=== PATIENT | female | born 1950 | race Caucasian/White ===

== ENCOUNTER 2021-06-13 13:20 | Inpatient (IN) ==
[2021-06-13] MEDS ORDERED: 0.9 % Sodium Chloride 500 ML IVC ONE (13:31)
[2021-06-13] MEDS ORDERED: 0.9 % Sodium Chloride 1,000 ML IVC SCH (13:45)
[2021-06-13 14:07] LABS: Basophils % 0.1 %; Eosinophils # 0.1 K/mcL (0.0-0.6); Eosinophils % 0.7 %; Hematocrit 35.4 % (35.3-44.9); Hemoglobin 11.7 g/dL (11.5-15.4); Immature Granulocytes % 0.9 % (0-4); Lymphocytes # 2.1 K/mcL (0.6-4.6); Lymphocytes % 17.4 %; Mean Corpuscular HGB Conc 33.1 g/dL (31.6-35.5); Mean Corpuscular Hemoglobin 36.8 pg (28.0-33.3); Mean Corpuscular Volume 111.3 fL (83.0-100.0); Mean Platelet Volume 10.8 fL (9.4-12.4); Monocytes # 0.5 K/mcL (0.0-1.3); Monocytes % 3.9 %; Neutrophils # 9.4 K/mcL (1.6-8.9); Platelet Count 143 K/mcL (140-400); Red Blood Count 3.18 M/mcL (3.82-4.97); Red Cell Distribution Width 17.2 % (11.5-14.5); White Blood Count 12.2 K/mcL (4.3-11.1)
[2021-06-13 14:14] LABS: INR 1.9; Prothrombin Time 21.2 Seconds (9.4-12.1)
[2021-06-13 14:16] LABS: Activated Partial Thrombo Time 32.5 Seconds (26.0-36.0)
[2021-06-13 14:25] LABS: Albumin 2.3 g/dL (3.5-5.7); Bilirubin,Direct 3.7 mg/dL (0.0-0.2); Bilirubin,Total 10.7 mg/dL (0.3-1.0); Globulin 2.4 g/dL (2.4-3.5); Potassium 3.6 mEq/L (3.5-5.1); Total Protein 4.7 g/dL (6.4-8.9)
[2021-06-13 14:30] LABS: Platelet Estimate Normal (Normal)
[2021-06-13 14:32] LABS: Macrocytosis Present (Not Present)
[2021-06-13] MEDS ORDERED: Naloxone 0.4 MG/ML INJ IVP PRN (15:37)
[2021-06-13] MEDS ORDERED: Ibuprofen 400 MG TABLET PO PRN (15:37)
[2021-06-13] MEDS ORDERED: Ondansetron 4 MG/2 ML VIAL IVP PRN (15:37)
[2021-06-13] MEDS: Ipratropium/Albuterol Neb 3 ML IH SCH ×2 (16:23→20:52)
[2021-06-13] MEDS: 0.9 % Sodium Chloride 1,000 ML IVC SCH (17:06)
[2021-06-13] MEDS: *HR* Heparin 5,000 UNIT/ML VIAL SQ SCH (17:38)
[2021-06-13] MEDS: Lactulose Oral Soln 20 GM/30 ML UDC PO SCH (20:37)
[2021-06-13] MEDS: Budesonide/Formoterol 160/4.5 1 PUFF INH IH SCH (20:51)
[2021-06-14] MEDS: 0.9 % Sodium Chloride 1,000 ML IVC SCH (03:10)
[2021-06-14] MEDS: Ipratropium/Albuterol Neb 3 ML IH SCH ×3 (04:25→08:05)
[2021-06-14] MEDS: *HR* Heparin 5,000 UNIT/ML VIAL SQ SCH ×2 (06:31→17:38)
[2021-06-14 07:53] LABS: Basophils % 0.2 %; Eosinophils # 0.1 K/mcL (0.0-0.6); Hematocrit 36.7 % (35.3-44.9); Hemoglobin 11.9 g/dL (11.5-15.4); Immature Granulocytes % 1.2 % (0-4); Lymphocytes # 2.3 K/mcL (0.6-4.6); Lymphocytes % 18.3 %; Mean Corpuscular HGB Conc 32.4 g/dL (31.6-35.5); Mean Corpuscular Hemoglobin 35.6 pg (28.0-33.3); Mean Corpuscular Volume 109.9 fL (83.0-100.0); Mean Platelet Volume 10.9 fL (9.4-12.4); Monocytes # 0.7 K/mcL (0.0-1.3); Monocytes % 5.9 %; Neutrophils # 9.3 K/mcL (1.6-8.9); Platelet Count 160 K/mcL (140-400); Red Blood Count 3.34 M/mcL (3.82-4.97); Red Cell Distribution Width 17.2 % (11.5-14.5); Segmented Neutrophils % 73.4 %; White Blood Count 12.6 K/mcL (4.3-11.1)
[2021-06-14 07:59] LABS: INR 1.7; Prothrombin Time 19.8 Seconds (9.4-12.1)
[2021-06-14] MEDS: Budesonide/Formoterol 160/4.5 1 PUFF INH IH SCH ×2 (08:05→22:43)
[2021-06-14 08:20] LABS: Albumin 2.3 g/dL (3.5-5.7); Albumin/Globulin Ratio 0.9 (1.1-2.2); Calcium 7.8 mg/dL (8.6-10.3); Globulin 2.6 g/dL (2.4-3.5); Magnesium 2.2 mg/dL (1.6-2.6); Potassium 3.7 mEq/L (3.5-5.1); Total Protein 4.9 g/dL (6.4-8.9)
[2021-06-14] MEDS ORDERED: Ipratropium/Albuterol Neb 3 ML IH PRN (08:58)
[2021-06-14] MEDS ORDERED: amLODIPine 5 MG TABLET PO SCH (09:00)
[2021-06-14] MEDS: Furosemide 40 MG TABLET PO SCH (09:22)
[2021-06-14] MEDS: Lactulose Oral Soln 20 GM/30 ML UDC PO SCH ×2 (09:22→21:22)
[2021-06-15 05:58] LABS: Basophils % 0.2 %; Eosinophils # 0.1 K/mcL (0.0-0.6); Eosinophils % 1.2 %; Hematocrit 35.1 % (35.3-44.9); Hemoglobin 11.5 g/dL (11.5-15.4); Immature Granulocytes % 0.8 % (0-4); Lymphocytes # 1.7 K/mcL (0.6-4.6); Lymphocytes % 18.7 %; Mean Corpuscular HGB Conc 32.8 g/dL (31.6-35.5); Mean Corpuscular Hemoglobin 36.3 pg (28.0-33.3); Mean Corpuscular Volume 110.7 fL (83.0-100.0); Mean Platelet Volume 10.5 fL (9.4-12.4); Monocytes # 0.4 K/mcL (0.0-1.3); Monocytes % 4.3 %; Platelet Count 145 K/mcL (140-400); Red Blood Count 3.17 M/mcL (3.82-4.97); Red Cell Distribution Width 17.3 % (11.5-14.5); Segmented Neutrophils % 74.8 %; White Blood Count 9.3 K/mcL (4.3-11.1)
[2021-06-15 06:26] LABS: Anisocytosis 1+ (Not Present); Macrocytosis Present (Not Present)
[2021-06-15] MEDS: *HR* Heparin 5,000 UNIT/ML VIAL SQ SCH ×2 (06:49→17:24)
[2021-06-15 06:57] LABS: Albumin 2.2 g/dL (3.5-5.7); Albumin/Globulin Ratio 0.9 (1.1-2.2); Bilirubin,Total 7.8 mg/dL (0.3-1.0); Calcium 7.5 mg/dL (8.6-10.3); Globulin 2.4 g/dL (2.4-3.5); Potassium 3.9 mEq/L (3.5-5.1); Total Protein 4.6 g/dL (6.4-8.9)
[2021-06-15] MEDS: Lactulose Oral Soln 20 GM/30 ML UDC PO SCH ×2 (09:13→20:18)
[2021-06-15] MEDS: Furosemide 40 MG TABLET PO SCH (09:13)
[2021-06-15] MEDS: Budesonide/Formoterol 160/4.5 1 PUFF INH IH SCH ×2 (09:46→21:35)
[2021-06-15 10:04] LABS: INR 1.6; Prothrombin Time 17.8 Seconds (9.4-12.1)
[2021-06-15] MEDS ORDERED: Albumin 25% 25gram/100mL 12.5 GM/50 ML IV.SOLN IVPB ONE (14:38)
[2021-06-15 14:58] LABS: Hepatitis B Surface Antigen Nonreactive (Nonreactive)
[2021-06-15 15:26] LABS: Hepatitis C Virus Antibody Nonreactive (Nonreactive)
[2021-06-15 15:27] LABS: Hepatitis B Core IgM Nonreactive (Nonreactive)
[2021-06-15 15:28] LABS: Hepatitis A Antibody IgM Nonreactive (Nonreactive)
[2021-06-15 16:32] LABS: RBC,Peritoneal Fluid < 2000 RBC/mcL
[2021-06-15 16:33] LABS: Appearance of Peritoneal Fl CLEAR (Clear)
[2021-06-15 17:46] LABS: Basophils,Peritoneal Fluid 0 %; Eosinophils,Peritoneal Fluid 0 %
[2021-06-16] MEDS: *HR* Heparin 5,000 UNIT/ML VIAL SQ SCH ×2 (05:43→15:45)
[2021-06-16 07:32] LABS: Basophils % 0.2 %; Eosinophils # 0.1 K/mcL (0.0-0.6); Eosinophils % 0.7 %; Hematocrit 32.5 % (35.3-44.9); Hemoglobin 10.7 g/dL (11.5-15.4); Immature Granulocytes % 0.9 % (0-4); Lymphocytes # 1.8 K/mcL (0.6-4.6); Lymphocytes % 18.8 %; Mean Corpuscular HGB Conc 32.9 g/dL (31.6-35.5); Mean Corpuscular Hemoglobin 36.6 pg (28.0-33.3); Mean Corpuscular Volume 111.3 fL (83.0-100.0); Mean Platelet Volume 11.1 fL (9.4-12.4); Monocytes # 0.5 K/mcL (0.0-1.3); Monocytes % 4.9 %; Neutrophils # 7.2 K/mcL (1.6-8.9); Platelet Count 125 K/mcL (140-400); Red Blood Count 2.92 M/mcL (3.82-4.97); Red Cell Distribution Width 17.6 % (11.5-14.5); Segmented Neutrophils % 74.5 %; White Blood Count 9.7 K/mcL (4.3-11.1)
[2021-06-16 07:52] LABS: INR 1.7; Prothrombin Time 19.2 Seconds (9.4-12.1)
[2021-06-16 08:06] LABS: Macrocytosis Present (Not Present)
[2021-06-16] MEDS: Lactulose Oral Soln 20 GM/30 ML UDC PO SCH ×2 (09:12→20:08)
[2021-06-16] MEDS: Furosemide 40 MG TABLET PO SCH (09:13)
[2021-06-16] MEDS: Budesonide/Formoterol 160/4.5 1 PUFF INH IH SCH ×2 (09:54→22:07)
[2021-06-16 12:08] LABS: Albumin 2.1 g/dL (3.5-5.7); Bilirubin,Total 6.1 mg/dL (0.3-1.0); Calcium 7.4 mg/dL (8.6-10.3); Globulin 2.1 g/dL (2.4-3.5); Potassium 3.9 mEq/L (3.5-5.1); Total Protein 4.2 g/dL (6.4-8.9)
[2021-06-16] MEDS: cephALEXin 500 MG CAPSULE PO SCH ×2 (15:45→20:08)
[2021-06-17] MEDS: *HR* Heparin 5,000 UNIT/ML VIAL SQ SCH (06:02)
[2021-06-17 07:43] VITALS: BP 89/54; PULSE 65; RESP 18; TEMP 98
[2021-06-17 07:59] LABS: Basophils % 0.2 %; Eosinophils # 0.1 K/mcL (0.0-0.6); Eosinophils % 1.2 %; Hematocrit 32.1 % (35.3-44.9); Hemoglobin 10.5 g/dL (11.5-15.4); Immature Granulocytes % 0.7 % (0-4); Lymphocytes # 1.7 K/mcL (0.6-4.6); Lymphocytes % 19.9 %; Mean Corpuscular HGB Conc 32.7 g/dL (31.6-35.5); Mean Corpuscular Hemoglobin 36.3 pg (28.0-33.3); Mean Corpuscular Volume 111.1 fL (83.0-100.0); Mean Platelet Volume 11.2 fL (9.4-12.4); Monocytes # 0.6 K/mcL (0.0-1.3); Monocytes % 6.9 %; Neutrophils # 6.2 K/mcL (1.6-8.9); Platelet Count 130 K/mcL (140-400); Red Blood Count 2.89 M/mcL (3.82-4.97); Red Cell Distribution Width 17.8 % (11.5-14.5); Segmented Neutrophils % 71.1 %; White Blood Count 8.7 K/mcL (4.3-11.1)
[2021-06-17] MEDS: cephALEXin 500 MG CAPSULE PO SCH (08:22)
[2021-06-17] MEDS: Lactulose Oral Soln 20 GM/30 ML UDC PO SCH (08:22)
[2021-06-17] MEDS: Furosemide 40 MG TABLET PO SCH (08:22)
[2021-06-17 08:30] LABS: Albumin 1.9 g/dL (3.5-5.7); Albumin/Globulin Ratio 0.9 (1.1-2.2); Bilirubin,Total 6.1 mg/dL (0.3-1.0); Calcium 7.3 mg/dL (8.6-10.3); Globulin 2.2 g/dL (2.4-3.5); Total Protein 4.1 g/dL (6.4-8.9)
[2021-06-17 08:34] LABS: Macrocytosis Present (Not Present)
[2021-06-17] MEDS: Budesonide/Formoterol 160/4.5 1 PUFF INH IH SCH (09:29)
[2021-06-17 09:31] VITALS: O2SAT 91
== END 2021-06-17 13:15 | disposition home or self-care (01) | DRG 603 ==
LOC: INPPIK 13:20 → EMEROOPIK 13:20 → INPPIK 16:01
PROVIDERS: ADMIT Nurse Practitioner Family; ATTEND Nurse Practitioner Family

== ENCOUNTER 2021-07-01 15:48 | Inpatient (IN) ==
[2021-07-01] MEDS: Ipratropium/Albuterol Neb 3 ML IH SCH (21:35)
[2021-07-01] MEDS: Budesonide/Formoterol 160/4.5 1 PUFF INH IH SCH (21:35)
[2021-07-01] MEDS: cephALEXin 500 MG CAPSULE PO SCH (21:47)
[2021-07-01] MEDS: [UNRECOGNIZED DRUG - OTHER] IH SCH (21:47)
[2021-07-01] MEDS: Lactulose Oral Soln 20 GM/30 ML UDC PO SCH (21:48)
[2021-07-02] MEDS: NEBULIZER ACCESSORIES IH SCH ×4 (01:20→16:37)
[2021-07-02] MEDS: [UNRECOGNIZED DRUG - OTHER] IH SCH ×4 (01:20→16:37)
[2021-07-02] MEDS: Ipratropium/Albuterol Neb 3 ML IH SCH ×4 (03:16→21:21)
[2021-07-02] MEDS ORDERED: *HR* Enoxaparin 30 MG/0.3 ML SYRINGE SQ SCH (07:00)
[2021-07-02 07:13] LABS: Basophils # 0.1 K/mcL (0.0-0.2); Basophils % 0.4 %; Eosinophils # 0.1 K/mcL (0.0-0.6); Eosinophils % 0.8 %; Hematocrit 28.3 % (35.3-44.9); Hemoglobin 9.4 g/dL (11.5-15.4); Immature Granulocytes % 0.4 % (0-4); Lymphocytes # 2.7 K/mcL (0.6-4.6); Mean Corpuscular HGB Conc 33.2 g/dL (31.6-35.5); Mean Corpuscular Hemoglobin 38.2 pg (28.0-33.3); Mean Platelet Volume 10.5 fL (9.4-12.4); Monocytes # 0.8 K/mcL (0.0-1.3); Monocytes % 6.6 %; Neutrophils # 8.1 K/mcL (1.6-8.9); Platelet Count 109 K/mcL (140-400); Red Blood Count 2.46 M/mcL (3.82-4.97); Red Cell Distribution Width 19.9 % (11.5-14.5); Segmented Neutrophils % 68.8 %; White Blood Count 11.8 K/mcL (4.3-11.1)
[2021-07-02 07:34] LABS: BUN/Creatinine Ratio 30 (6-26); Blood Urea Nitrogen 32 mg/dL (8-23); Calcium 7.9 mg/dL (8.6-10.3); Carbon Dioxide 25 mEq/L (23-29); Chloride 99 mEq/L (98-107); Glucose 120 mg/dL (70-105); Osmolality,Calculated 286 (280-300); Potassium 3.8 mEq/L (3.5-5.1); Sodium 134 mEq/L (136-145); eGFR For African Americans > 60 (> 60); eGFR For Non-African Americans 50 (> 60)
[2021-07-02] MEDS: cephALEXin 500 MG CAPSULE PO SCH ×3 (09:16→20:39)
[2021-07-02] MEDS: Lactulose Oral Soln 20 GM/30 ML UDC PO SCH ×2 (09:17→20:39)
[2021-07-02] MEDS: Furosemide 40 MG TABLET PO SCH (09:25)
[2021-07-02] MEDS: amLODIPine 5 MG TABLET PO SCH (09:27)
[2021-07-02 09:34] LABS: Anisocytosis 1+ (Not Present); Macrocytosis Present (Not Present); Platelet Estimate Decreased (Normal)
[2021-07-02] MEDS: Budesonide/Formoterol 160/4.5 1 PUFF INH IH SCH ×2 (10:39→21:21)
[2021-07-02 15:16] LABS: Albumin 2.7 g/dL (3.5-5.7); Albumin/Globulin Ratio 1.5 (1.1-2.2); Bilirubin,Direct 1.8 mg/dL (0.0-0.2); Bilirubin,Indirect 5.4 mg/dL (0.0-1.0); Bilirubin,Total 7.2 mg/dL (0.3-1.0); Globulin 1.8 g/dL (2.4-3.5); Total Protein 4.5 g/dL (6.4-8.9)
[2021-07-03] MEDS: Ipratropium/Albuterol Neb 3 ML IH SCH ×4 (03:16→22:10)
[2021-07-03] MEDS: *HR* Enoxaparin 40 MG/0.4 ML SYRINGE SQ SCH (05:18)
[2021-07-03 07:00] LABS: Basophils # 0.1 K/mcL (0.0-0.2); Basophils % 0.5 %; Eosinophils # 0.1 K/mcL (0.0-0.6); Eosinophils % 0.7 %; Hematocrit 31.9 % (35.3-44.9); Hemoglobin 9.7 g/dL (11.5-15.4); Immature Granulocytes % 0.4 % (0-4); Lymphocytes # 2.5 K/mcL (0.6-4.6); Lymphocytes % 26.6 %; Mean Corpuscular HGB Conc 30.4 g/dL (31.6-35.5); Mean Corpuscular Hemoglobin 38.3 pg (28.0-33.3); Mean Corpuscular Volume 126.1 fL (83.0-100.0); Mean Platelet Volume 10.8 fL (9.4-12.4); Monocytes # 0.6 K/mcL (0.0-1.3); Monocytes % 6.5 %; Neutrophils # 6.2 K/mcL (1.6-8.9); Platelet Count 100 K/mcL (140-400); Red Blood Count 2.53 M/mcL (3.82-4.97); Red Cell Distribution Width 20.5 % (11.5-14.5); Segmented Neutrophils % 65.3 %; White Blood Count 9.5 K/mcL (4.3-11.1)
[2021-07-03 08:08] LABS: Anisocytosis 1+ (Not Present); Macrocytosis Present (Not Present); Platelet Estimate Decreased (Normal); Spherocytes 1+ (Not Present)
[2021-07-03 09:11] LABS: Alanine Aminotransferase 36 Units/L (7-52); Albumin 2.6 g/dL (3.5-5.7); Albumin/Globulin Ratio 1.3 (1.1-2.2); Alkaline Phosphatase 64 Units/L (34-104); Aspartate Amino Transferase 58 Units/L (13-39); BUN/Creatinine Ratio 37 (6-26); Bilirubin,Total 7.4 mg/dL (0.3-1.0); Blood Urea Nitrogen 36 mg/dL (8-23); Carbon Dioxide 23 mEq/L (23-29); Chloride 100 mEq/L (98-107); Glucose 86 mg/dL (70-105); Osmolality,Calculated 288 (280-300); Potassium 4.1 mEq/L (3.5-5.1); Sodium 135 mEq/L (136-145); Total Protein 4.6 g/dL (6.4-8.9); eGFR For African Americans > 60 (> 60); eGFR For Non-African Americans 56 (> 60)
[2021-07-03] MEDS: Lactulose Oral Soln 20 GM/30 ML UDC PO SCH ×2 (09:25→19:35)
[2021-07-03] MEDS: cephALEXin 500 MG CAPSULE PO SCH ×3 (09:25→19:33)
[2021-07-03] MEDS: Budesonide/Formoterol 160/4.5 1 PUFF INH IH SCH ×2 (10:59→22:11)
[2021-07-03] MEDS ORDERED: Albumin 25% 25gram/100mL 25 GM/100 ML IV.SOLN IVPB ONE (14:36)
[2021-07-04] MEDS: Ipratropium/Albuterol Neb 3 ML IH SCH (03:03)
[2021-07-04] MEDS: *HR* Enoxaparin 40 MG/0.4 ML SYRINGE SQ SCH (05:32)
[2021-07-04] MEDS: Furosemide 40 MG TABLET PO SCH (09:02)
[2021-07-04] MEDS: Lactulose Oral Soln 20 GM/30 ML UDC PO SCH ×2 (09:02→20:44)
[2021-07-04] MEDS: amLODIPine 5 MG TABLET PO SCH (09:03)
[2021-07-04] MEDS ORDERED: Ipratropium/Albuterol Neb 3 ML IH PRN (10:00)
[2021-07-04] MEDS: Budesonide/Formoterol 160/4.5 1 PUFF INH IH SCH ×2 (10:10→21:37)
[2021-07-04] MEDS: NEBULIZER ACCESSORIES IH SCH ×3 (16:57→17:00)
[2021-07-04] MEDS: [UNRECOGNIZED DRUG - OTHER] IH SCH ×3 (16:58→17:00)
[2021-07-05] MEDS: NEBULIZER ACCESSORIES IH SCH ×3 (04:06→16:56)
[2021-07-05] MEDS: [UNRECOGNIZED DRUG - OTHER] IH SCH ×3 (04:06→16:56)
[2021-07-05] MEDS: Furosemide 40 MG TABLET PO SCH (08:52)
[2021-07-05] MEDS: Lactulose Oral Soln 20 GM/30 ML UDC PO SCH ×2 (08:53→21:03)
[2021-07-05] MEDS: amLODIPine 5 MG TABLET PO SCH (08:53)
[2021-07-05] MEDS: *HR* Enoxaparin 40 MG/0.4 ML SYRINGE SQ SCH (09:08)
[2021-07-05 09:23] LABS: Basophils % 0.5 %; Eosinophils % 0.5 %; Hematocrit 29.4 % (35.3-44.9); Hemoglobin 9.3 g/dL (11.5-15.4); Immature Granulocytes % 0.3 % (0-4); Lymphocytes # 2.9 K/mcL (0.6-4.6); Mean Corpuscular HGB Conc 31.6 g/dL (31.6-35.5); Mean Corpuscular Hemoglobin 38.4 pg (28.0-33.3); Mean Corpuscular Volume 121.5 fL (83.0-100.0); Mean Platelet Volume 10.6 fL (9.4-12.4); Monocytes # 0.7 K/mcL (0.0-1.3); Neutrophils # 3.7 K/mcL (1.6-8.9); Red Blood Count 2.42 M/mcL (3.82-4.97); Red Cell Distribution Width 20.4 % (11.5-14.5); Segmented Neutrophils % 50.7 %; White Blood Count 7.3 K/mcL (4.3-11.1)
[2021-07-05 09:29] LABS: Platelet Count 72 K/mcL (140-400)
[2021-07-05] MEDS: Budesonide/Formoterol 160/4.5 1 PUFF INH IH SCH ×2 (10:22→21:11)
[2021-07-05 10:25] LABS: Alanine Aminotransferase 41 Units/L (7-52); Albumin 2.6 g/dL (3.5-5.7); Albumin/Globulin Ratio 1.3 (1.1-2.2); Alkaline Phosphatase 65 Units/L (34-104); Aspartate Amino Transferase 73 Units/L (13-39); BUN/Creatinine Ratio 33 (6-26); Bilirubin,Total 7.1 mg/dL (0.3-1.0); Blood Urea Nitrogen 28 mg/dL (8-23); Calcium 7.8 mg/dL (8.6-10.3); Carbon Dioxide 23 mEq/L (23-29); Chloride 99 mEq/L (98-107); Glucose 88 mg/dL (70-105); Osmolality,Calculated 279 (280-300); Potassium 4.5 mEq/L (3.5-5.1); Sodium 132 mEq/L (136-145); Total Protein 4.6 g/dL (6.4-8.9); eGFR For African Americans > 60 (> 60); eGFR For Non-African Americans > 60 (> 60)
[2021-07-05 10:28] LABS: Anisocytosis 2+ (Not Present); Macrocytosis Present (Not Present); Platelet Estimate Decreased (Normal)
[2021-07-05] MEDS: Ondansetron ODT 4 MG TAB.RAPDIS PO PRN (21:06)
[2021-07-06] MEDS: NEBULIZER ACCESSORIES IH SCH ×3 (02:50→14:11)
[2021-07-06] MEDS: [UNRECOGNIZED DRUG - OTHER] IH SCH ×3 (02:50→14:11)
[2021-07-06] MEDS: *HR* Enoxaparin 40 MG/0.4 ML SYRINGE SQ SCH (06:32)
[2021-07-06] MEDS: amLODIPine 5 MG TABLET PO SCH (08:00)
[2021-07-06] MEDS: Lactulose Oral Soln 20 GM/30 ML UDC PO SCH ×2 (08:16→20:28)
[2021-07-06] MEDS: Furosemide 40 MG TABLET PO SCH (08:17)
[2021-07-06] MEDS: Budesonide/Formoterol 160/4.5 1 PUFF INH IH SCH ×2 (10:06→22:09)
[2021-07-07] MEDS: *HR* Enoxaparin 40 MG/0.4 ML SYRINGE SQ SCH (05:47)
[2021-07-07] MEDS: NEBULIZER ACCESSORIES IH SCH ×4 (08:53→17:55)
[2021-07-07] MEDS: [UNRECOGNIZED DRUG - OTHER] IH SCH ×4 (08:53→17:55)
[2021-07-07] MEDS: Lactulose Oral Soln 20 GM/30 ML UDC PO SCH ×2 (09:04→22:00)
[2021-07-07] MEDS: Furosemide 40 MG TABLET PO SCH (09:04)
[2021-07-07] MEDS: Budesonide/Formoterol 160/4.5 1 PUFF INH IH SCH ×2 (09:36→20:06)
[2021-07-07] MEDS: Albumin 25% 25gram/100mL 25 GM/100 ML IV.SOLN IVPB ONE (16:25)
[2021-07-08] MEDS: NEBULIZER ACCESSORIES IH SCH ×4 (00:43→18:16)
[2021-07-08] MEDS: [UNRECOGNIZED DRUG - OTHER] IH SCH ×4 (00:44→18:16)
[2021-07-08] MEDS: *HR* Enoxaparin 40 MG/0.4 ML SYRINGE SQ SCH (06:10)
[2021-07-08] MEDS: Lactulose Oral Soln 20 GM/30 ML UDC PO SCH ×2 (08:44→21:12)
[2021-07-08] MEDS: Furosemide 40 MG TABLET PO SCH (08:45)
[2021-07-08] MEDS: Budesonide/Formoterol 160/4.5 1 PUFF INH IH SCH ×2 (09:12→20:12)
[2021-07-08 09:39] LABS: Basophils % 0.4 %; Eosinophils % 0.3 %; Hemoglobin 8.7 g/dL (11.5-15.4); Immature Granulocytes % 0.4 % (0-4); Lymphocytes # 3.8 K/mcL (0.6-4.6); Lymphocytes % 38.6 %; Mean Corpuscular HGB Conc 32.2 g/dL (31.6-35.5); Mean Corpuscular Hemoglobin 38.7 pg (28.0-33.3); Mean Platelet Volume 10.5 fL (9.4-12.4); Monocytes # 0.7 K/mcL (0.0-1.3); Monocytes % 7.1 %; Neutrophils # 5.3 K/mcL (1.6-8.9); Platelet Count 117 K/mcL (140-400); Red Blood Count 2.25 M/mcL (3.82-4.97); Red Cell Distribution Width 20.1 % (11.5-14.5); Segmented Neutrophils % 53.2 %; White Blood Count 9.9 K/mcL (4.3-11.1)
[2021-07-08 10:07] LABS: BUN/Creatinine Ratio 30 (6-26); Blood Urea Nitrogen 28 mg/dL (8-23); Calcium 7.8 mg/dL (8.6-10.3); Carbon Dioxide 24 mEq/L (23-29); Chloride 100 mEq/L (98-107); Glucose 109 mg/dL (70-105); Osmolality,Calculated 284 (280-300); Potassium 4.1 mEq/L (3.5-5.1); Sodium 134 mEq/L (136-145); eGFR For African Americans > 60 (> 60); eGFR For Non-African Americans > 60 (> 60)
[2021-07-08] MEDS ORDERED: Albumin 25% 25gram/100mL 25 GM/100 ML IV.SOLN IVPB ONE (10:42)
[2021-07-08] MEDS: Albumin 25% 25gram/100mL 25 GM/100 ML IV.SOLN IVPB ONE (11:00)
[2021-07-08 11:05] LABS: Anisocytosis 1+ (Not Present); Macrocytosis Present (Not Present); Platelet Estimate Slight Decrease (Normal)
[2021-07-09] MEDS: NEBULIZER ACCESSORIES IH SCH ×4 (06:08→16:25)
[2021-07-09] MEDS: [UNRECOGNIZED DRUG - OTHER] IH SCH ×4 (06:08→16:25)
[2021-07-09] MEDS: *HR* Enoxaparin 40 MG/0.4 ML SYRINGE SQ SCH (06:09)
[2021-07-09] MEDS: Furosemide 40 MG TABLET PO SCH (08:29)
[2021-07-09] MEDS: Lactulose Oral Soln 20 GM/30 ML UDC PO SCH ×2 (08:30→20:14)
[2021-07-09] MEDS: Budesonide/Formoterol 160/4.5 1 PUFF INH IH SCH ×2 (09:23→20:24)
[2021-07-10] MEDS: NEBULIZER ACCESSORIES IH SCH ×4 (01:19→17:03)
[2021-07-10] MEDS: [UNRECOGNIZED DRUG - OTHER] IH SCH ×4 (01:19→17:03)
[2021-07-10] MEDS: *HR* Enoxaparin 40 MG/0.4 ML SYRINGE SQ SCH (05:17)
[2021-07-10] MEDS: Budesonide/Formoterol 160/4.5 1 PUFF INH IH SCH ×2 (09:09→21:55)
[2021-07-10] MEDS: Lactulose Oral Soln 20 GM/30 ML UDC PO SCH ×2 (14:20→20:19)
[2021-07-10] MEDS: Furosemide 40 MG TABLET PO SCH (14:21)
[2021-07-11] MEDS: *HR* Enoxaparin 40 MG/0.4 ML SYRINGE SQ SCH (05:30)
[2021-07-11] MEDS: NEBULIZER ACCESSORIES IH SCH ×4 (05:33→22:52)
[2021-07-11] MEDS: [UNRECOGNIZED DRUG - OTHER] IH SCH ×4 (05:33→22:52)
[2021-07-11] MEDS: Furosemide 40 MG TABLET PO SCH (10:01)
[2021-07-11] MEDS: Lactulose Oral Soln 20 GM/30 ML UDC PO SCH ×2 (10:02→21:41)
[2021-07-11] MEDS: Budesonide/Formoterol 160/4.5 1 PUFF INH IH SCH ×2 (11:28→20:43)
[2021-07-11 22:50] LABS: Basophils % 0.4 %; Eosinophils % 0.4 %; Hematocrit 27.8 % (35.3-44.9); Hemoglobin 9.2 g/dL (11.5-15.4); Immature Granulocytes % 0.4 % (0-4); Lymphocytes # 5.2 K/mcL (0.6-4.6); Lymphocytes % 46.1 %; Mean Corpuscular HGB Conc 33.1 g/dL (31.6-35.5); Mean Corpuscular Hemoglobin 37.9 pg (28.0-33.3); Mean Corpuscular Volume 114.4 fL (83.0-100.0); Mean Platelet Volume 10.3 fL (9.4-12.4); Monocytes # 0.8 K/mcL (0.0-1.3); Neutrophils # 5.1 K/mcL (1.6-8.9); Platelet Count 132 K/mcL (140-400); Red Blood Count 2.43 M/mcL (3.82-4.97); Red Cell Distribution Width 19.1 % (11.5-14.5); Segmented Neutrophils % 45.7 %; White Blood Count 11.2 K/mcL (4.3-11.1)
[2021-07-11 23:00] LABS: INR 2.5
[2021-07-11 23:10] LABS: Alanine Aminotransferase 49 Units/L (7-52); Albumin 2.6 g/dL (3.5-5.7); Albumin/Globulin Ratio 1.1 (1.1-2.2); Alkaline Phosphatase 70 Units/L (34-104); Aspartate Amino Transferase 91 Units/L (13-39); BUN/Creatinine Ratio 32 (6-26); Bilirubin,Total 6.8 mg/dL (0.3-1.0); Blood Urea Nitrogen 32 mg/dL (8-23); Calcium 8.1 mg/dL (8.6-10.3); Carbon Dioxide 23 mEq/L (23-29); Chloride 100 mEq/L (98-107); Globulin 2.3 g/dL (2.4-3.5); Glucose 116 mg/dL (70-105); Osmolality,Calculated 286 (280-300); Potassium 4.5 mEq/L (3.5-5.1); Sodium 134 mEq/L (136-145); Total Protein 4.9 g/dL (6.4-8.9); eGFR For African Americans > 60 (> 60); eGFR For Non-African Americans 55 (> 60)
[2021-07-11 23:19] LABS: Anisocytosis 2+ (Not Present); Macrocytosis Present (Not Present)
[2021-07-11 23:21] LABS: Platelet Estimate Decreased (Normal)
[2021-07-12 00:14] LABS: Bilirubin,Urine Negative (Negative); Blood,Urine Large (Negative); Clarity,Urine Cloudy (Clear); Color,Urine Amber (Yellow); Glucose,Urine (UA) Normal (Normal); Ketones,Urine Trace mg/dL (Negative); Leukocyte Esterase,Urine Moderate (Negative); Nitrite,Urine Negative (Negative); PH,Urine 5.5 pH Units (5.0-8.0); Protein,Urine 100 mg/dL (Neg-Trace); Specific Gravity,Urine 1.025 (1.010-1.025)
[2021-07-12] MEDS ORDERED: Lactulose Oral Soln 20 GM/30 ML UDC PO ONE ×2 (00:14→02:45)
[2021-07-12 00:22] LABS: Bacteria,Urine Many per hpf (None-Few); RBC,Urine 30-50 per hpf (0-3); Squamous Epithelial Cell,Urine Moderate per hpf (None-Few); WBC,Urine TNTC per hpf (0-3)
[2021-07-12] MEDS: NEBULIZER ACCESSORIES IH SCH ×4 (04:17→20:35)
[2021-07-12] MEDS: [UNRECOGNIZED DRUG - OTHER] IH SCH ×4 (04:17→20:35)
[2021-07-12] MEDS ORDERED: Bisacodyl 10 MG RECTAL SUPPOSITORY RC PRN (04:35)
[2021-07-12] MEDS: cefTRIAXone 1,000 MG in Water for inj. (sterile) 10 ML IVP SCH (05:12)
[2021-07-12] MEDS: *HR* Enoxaparin 40 MG/0.4 ML SYRINGE SQ SCH (05:13)
[2021-07-12] MEDS: Lactulose Oral Soln 20 GM/30 ML UDC PO SCH ×2 (09:25→20:35)
[2021-07-12] MEDS: Furosemide 40 MG TABLET PO SCH (09:27)
[2021-07-12] MEDS: Budesonide/Formoterol 160/4.5 1 PUFF INH IH SCH ×2 (10:47→20:22)
[2021-07-13] MEDS: NEBULIZER ACCESSORIES IH SCH ×3 (05:14→17:05)
[2021-07-13] MEDS: [UNRECOGNIZED DRUG - OTHER] IH SCH ×3 (05:14→17:05)
[2021-07-13] MEDS: *HR* Enoxaparin 40 MG/0.4 ML SYRINGE SQ SCH (06:02)
[2021-07-13 07:45] LABS: Basophils % 0.3 %; Eosinophils # 0.1 K/mcL (0.0-0.6); Eosinophils % 0.9 %; Hematocrit 26.5 % (35.3-44.9); Hemoglobin 8.7 g/dL (11.5-15.4); Immature Granulocytes % 0.4 % (0-4); Lymphocytes # 4.2 K/mcL (0.6-4.6); Lymphocytes % 42.9 %; Mean Corpuscular HGB Conc 32.8 g/dL (31.6-35.5); Mean Corpuscular Hemoglobin 37.8 pg (28.0-33.3); Mean Corpuscular Volume 115.2 fL (83.0-100.0); Mean Platelet Volume 10.2 fL (9.4-12.4); Monocytes # 0.8 K/mcL (0.0-1.3); Monocytes % 8.4 %; Neutrophils # 4.6 K/mcL (1.6-8.9); Platelet Count 127 K/mcL (140-400); Red Cell Distribution Width 18.9 % (11.5-14.5); Segmented Neutrophils % 47.1 %; White Blood Count 9.8 K/mcL (4.3-11.1)
[2021-07-13 07:58] VITALS: BP 91/60; PULSE 77; TEMP 97.5
[2021-07-13 08:01] LABS: Albumin 2.4 g/dL (3.5-5.7); Bilirubin,Total 5.7 mg/dL (0.3-1.0); Calcium 7.9 mg/dL (8.6-10.3); Globulin 2.5 g/dL (2.4-3.5); Potassium 4.5 mEq/L (3.5-5.1); Total Protein 4.9 g/dL (6.4-8.9)
[2021-07-13 08:33] LABS: Anisocytosis 2+ (Not Present); Platelet Estimate Decreased (Normal)
[2021-07-13 08:35] LABS: Macrocytosis Present (Not Present)
[2021-07-13] MEDS: Lactulose Oral Soln 20 GM/30 ML UDC PO SCH (09:51)
[2021-07-13] MEDS: cefTRIAXone 1,000 MG in Water for inj. (sterile) 10 ML IVP SCH (09:51)
[2021-07-13] MEDS: Furosemide 40 MG TABLET PO SCH (09:52)
[2021-07-13] MEDS: Budesonide/Formoterol 160/4.5 1 PUFF INH IH SCH ×2 (10:04→22:15)
[2021-07-13 13:31] VITALS: RESP 14; O2SAT 99
[2021-07-13] MEDS ORDERED: Lactulose Oral Soln 20 GM/30 ML UDC PO SCH (15:00)
[2021-07-13] MEDS: Ondansetron ODT 4 MG TAB.RAPDIS PO PRN (17:45)
== END 2021-07-13 20:50 | disposition hospice, home (50) | DRG 433 ==
LOC: INPPIK 20:54
PROVIDERS: ADMIT Internal Medicine; ATTEND Family Medicine